=== PATIENT | female | born 1980 ===

== ENCOUNTER 2017-06-07 17:01 | Emergency (ER) | payer OTHER ==
[2017-06-07 17:04] VITALS: BP 132/82; PULSE 81; RESP 16; TEMP 97.9; O2SAT 100
[2017-06-07 17:05] VITALS: BMI 22.6
[2017-06-07] MEDS ORDERED: Ammonia 2% Inhalant ONE (17:32)
--- NOTE | 2017-06-07 18:05 | ED PDOC ---
HPI: Psych/Substance Abuse Time Seen by Provider: 06/07/17 17:14 Chief Complaint (Nursing): Psychiatric Evaluation Chief Complaint (Provider): Psychiatric Evaluation History Per: Patient History/Exam Limitations: clinical condition Current Symptoms Are (Timing): Still Present Additional History Per: Boyfriend Additional Complaint(s): Patient is a 37 y/o female who was brought to the ED by her catalyst manufacturing operator after she became unresponsive following a verbal argument in the car. She was upset and became unresponsive to verbal stimuli. In the ED she was noted to be crying and hyperventilating. Scribing Machine Operator states that he was breaking up with her, and that she is currently going through a divorce. PMD: None Provided Past Medical History Reviewed: Historical Data, Nursing Documentation, Vital Signs Vital Signs: Last Vital Signs Temp 97.9 F 06/07/17 17:03 Pulse 81 06/07/17 17:03 Resp 16 06/07/17 17:03 BP 132/82 06/07/17 17:03 Pulse Ox 100 06/07/17 17:03 - Medical History PMH: Anemia, Migraine - Surgical History Surgical History: Appendectomy, Cholecystectomy - Family History Family History: States: Unknown Family Hx - Immunization History Hx Tetanus Toxoid Vaccination: No Hx Influenza Vaccination: No Hx Pneumococcal Vaccination: No - Home Medications Home Medications: Ambulatory Orders Medication Instructions Recorded Acetaminophen/Butalbital/Caf 1 tab PO TID PRN #20 tab 04/06/17 [Fioricet] Ibuprofen [Motrin Tab] 600 mg PO Q8 #30 tab 04/06/17 Metoclopramide [Reglan] 1 tab PO TID PRN #25 tab 04/06/17 - Allergies Allergies/Adverse Reactions: Allergies Allergy/AdvReac Type Severity Reaction Status Date / Time No Known Allergies Allergy Unverified 04/06/17 00:02 Review of Systems Review Of Systems: ROS cannot be obtained secondary to pt's inabilty to answer questions. Physical Exam - Reviewed Nursing Documentation Reviewed: Yes Vital Signs Reviewed: Yes - Physical Exam Appears: Positive for: Non-toxic, No Acute Distress Head Exam: Positive for: ATRAUMATIC, NORMAL INSPECTION, NORMOCEPHALIC Skin: Positive for: Normal Color, Warm, Dry Eye Exam: Positive for: Normal appearance, EOMI, PERRL. Negative for: Nystagmus ENT: Positive for: Normal ENT Inspection Neck: Positive for: Normal, Painless ROM, Supple Cardiovascular/Chest: Positive for: Regular Rate, Rhythm. Negative for: Edema, Murmur Respiratory: Positive for: Normal Breath Sounds. Negative for: Wheezing, Respiratory Distress Gastrointestinal/Abdominal: Positive for: Normal Exam, Bowel Sounds, Soft. Negative for: Tenderness Back: Positive for: Normal Inspection Extremity: Positive for: Normal ROM. Negative for: Pedal Edema, Deformity Neurologic/Psych: Positive for: Alert (arousable to verbal stimuli. not awake or alert), Oriented, Mood/Affect (appears anxious) - Laboratory Results Result Diagrams: 06/07/17 18:00 06/07/17 18:00 - ECG O2 Sat by Pulse Oximetry: 100 (RA) Pulse Ox Interpretation: Normal Medical Decision Making Medical Decision Making: Time: 17:37 Initial Impression: adjustment disorder, panic attack Initial Plan: --EKG --Alcohol Serum --BMP --Urine Drug Screen --HCG --Urine --CBC Patient is cleared by Dr Ramos per crisis. Patient is upset but back to normal mental status at this time. Scribe Attestation: Documented by Michael Simpson, acting as a scribe for Dr. Poppy Galdamez MD. Provider Scribe Attestation: All medical record entries made by the Scribe were at my direction and personally dictated by me. I have reviewed the chart and agree that the record accurately reflects my personal performance of the history, physical exam, medical decision making, and the department course for this patient. I have also personally directed, reviewed, and agree with the discharge instructions and disposition. Disposition - Clinical Impression Clinical Impression: Adjustment disorder - Patient ED Disposition Is Patient to be Admitted: No Doctor Will See Patient In The: Office Counseled Patient/Family Regarding: Studies Performed, Diagnosis, Need For Followup - Disposition Referrals: [facility] [Outside] Disposition: Routine/Home Disposition Time: 19:00 Condition: GOOD Additional Instructions: Follow up with your PCP in 2-3 days. Instructions: Stress (ED), Mood Disorders (ED)
[2017-06-07 18:12] LABS: BASO # 0.1 K/uL (0.0-0.2); BASO % 0.9 % (0.0-2.0); EOS # 0.1 K/uL (0.0-0.7); EOS % 0.9 % (0.0-4.0); HEMATOCRIT 29.3 % (34.0-47.0); LYMPH # 1.3 K/uL (1.0-4.3); MEAN CELL VOLUME 71.5 fl (81.0-99.0); MEAN CORPUSCULAR HEMOGLOBIN 22.1 pg (27.0-31.0); MEAN CORPUSCULAR HGB CONC 30.8 g/dL (33.0-37.0); MEAN PLATELET VOLUME 8.4 fl (7.2-11.7); MONO # 0.4 K/uL (0.0-0.8); MONO % 6.6 % (0.0-10.0); NEUT # 4.3 K/uL (1.8-7.0); NEUT % 70.6 % (50.0-75.0); RED CELL DISTRIBUTION WIDTH 16.9 % (11.5-14.5)
[2017-06-07 18:17] LABS: ALCOHOL SERUM < 10 mg/dl (0-10); BLOOD UREA NITROGEN 6 mg/dl (7-17); CALCIUM 9.4 mg/dL (8.4-10.2); CARBON DIOXIDE 25 mmol/L (22-30); CHLORIDE 107 mmol/L (98-107); GFR AFRICAN-AMERICAN > 60; GLUCOSE,RANDOM 93 mg/dL (65-105); POTASSIUM 3.8 MMOL/L (3.6-5.0); SODIUM 141 mmol/l (132-148)
== END 2017-06-07 20:58 | disposition home or self-care (01) ==
LOC: H.ER 17:01
DX: F43.20 Adjustment disorder, unspecified (principal); F41.0 Panic disorder [episodic paroxysmal anxiety]

== ENCOUNTER 2018-05-26 16:50 | Observation (INO) | payer MEDICAID, OTHER ==
[2018-05-26 16:51] VITALS: BMI 25.1
[2018-05-26 16:55] VITALS: TEMP 98
--- NOTE | 2018-05-26 18:53 | ED PDOC ---
HPI: Psych/Substance Abuse Time Seen by Provider: 05/26/18 17:00 Chief Complaint (Nursing): Psychiatric Evaluation Chief Complaint (Provider): Benadryl overdose History Per: Patient, Parachute Accessories Attacher (Virginia Vasques #[id number]) History/Exam Limitations: no limitations Associated Symptoms: denies: Suicidal Thoughts, Suicidal Plan Additional Complaint(s): 38yo female, no past medical history, brought to ER by EMS for evaluation s/p possible suicide attempt. Per EMS, patient's family called them after patient noted to take pills at home. Upon questioning, patient admits to taking 4 Benadryl pills and states she is feeling very anxious. She denies any suicidal or homicidal ideation; patient also denies any medical complaints. PMD: None Past Medical History Reviewed: Historical Data, Nursing Documentation, Vital Signs Vital Signs: Last Vital Signs Temp 98.0 F 05/26/18 16:52 Pulse 116 H 05/26/18 16:52 Resp 16 05/26/18 16:52 BP 141/87 05/26/18 16:52 Pulse Ox 99 05/26/18 16:52 - Medical History PMH: Anemia, Depression, Migraine Denies: Diabetes, Hepatitis, HIV, HTN, Chronic Kidney Disease, Seizures, Sexually Transmitted Disease - Surgical History Surgical History: Appendectomy, Cholecystectomy, - Family History Family History: States: Unknown Family Hx - Living Arrangements Living Arrangements: With Family - Social History Current smoker - smoking cessation education provided: No Alcohol: None Drugs: Denies - Immunization History Hx Tetanus Toxoid Vaccination: No Hx Influenza Vaccination: No Hx Pneumococcal Vaccination: No - Home Medications Home Medications: Ambulatory Orders Medication Instructions Recorded Ondansetron ODT [Zofran ODT] 4 mg PO Q8 #12 odt 01/20/18 Ciprofloxacin HCl [Cipro] 500 mg PO BID 10 Days tablet 01/25/18 Ondansetron ODT [Zofran ODT] 4 mg PO Q6H 10 Days odt 01/25/18 Sulfamethoxazole/Trimethoprim 1 tab PO BID #20 tab 02/22/18 [Bactrim DS 800 mg-160 mg] - Allergies Allergies/Adverse Reactions: Allergies Allergy/AdvReac Type Severity Reaction Status Date / Time No Known Allergies Allergy Verified 05/26/18 16:52 Review of Systems ROS Statement: Except As Marked, All Systems Reviewed And Found Negative Psych: Positive for: Other (Took 4x benadryl tablets). Negative for: Suicidal ideation Physical Exam - Reviewed Nursing Documentation Reviewed: Yes Vital Signs Reviewed: Yes - Physical Exam Appears: Positive for: No Acute Distress Head Exam: Positive for: ATRAUMATIC, NORMAL INSPECTION, NORMOCEPHALIC Skin: Positive for: Normal Color Eye Exam: Positive for: Normal appearance, EOMI, PERRL Neck: Positive for: Normal, Supple Cardiovascular/Chest: Positive for: Tachycardia Respiratory: Positive for: Normal Breath Sounds Gastrointestinal/Abdominal: Positive for: Normal Exam, Soft Back: Positive for: Normal Inspection Extremity: Positive for: Normal ROM, Other (superficial cuts on wrists) Neurologic/Psych: Positive for: Oriented, Other (sleepy but arousable). Negative for: Motor/Sensory Deficits - Laboratory Results Result Diagrams: 05/26/18 19:15 05/26/18 19:15 - ECG ECG: Positive for: Interpreted By Me, Viewed By Me ECG Rhythm: Positive for: Sinus Rhythm Rate: 97 O2 Sat by Pulse Oximetry: 99 (RA) Pulse Ox Interpretation: Normal Medical Decision Making Medical Decision Making: Impression: Patient reported to have taken 4x benadryl (25 mg), suicide attempt Plan: * EKG * Labs * Urinalysis * Poison control consult 21:13 Patient seen and evaluated by crisis team. Patient with persistent drowsiness, patient to be observed in the ER 22:21 pt more alert and awake. ambulaating around the room. coherent, oriented X3. pt no longer somnolent. vitals stable pt has been observed in the ER. Patient now requesting to go home; patient to be re-evaluated by crisis team. 22:45 Per personal care worker, patient needs to be screened by [facility] [place]. Patient currently pending [facility] evaluation. 22:55 Patient is medically cleared for [facility] screening Scribe Attestation: Documented by Agata Villasenor, acting as a scribe for Dudley Barnes MD. Provider Scribe Attestation: All medical record entries made by the Scribe were at my direction and personally dictated by me. I have reviewed the chart and agree that the record accurately reflects my personal performance of the history, physical exam, medical decision making, and the department course for this patient. I have also personally directed, reviewed, and agree with the discharge instructions and disposition. Disposition - Clinical Impression Clinical Impression: Depression - Patient ED Disposition Is Patient to be Admitted: Transfer of Care - Disposition Disposition: Transfer of Care Disposition Time: 23:53 Condition: STABLE Patient Signed Over To: Juan Luis Jc
[2018-05-26 19:27] LABS: SQUAMOUS EPITHIAL 1 /hpf (0-5); URINE BILIRUBIN NEGATIVE (NEGATIVE); URINE BLOOD NEGATIVE (NEGATIVE); URINE CLARITY CLEAR (Clear); URINE COLOR COLORLESS (YELLOW); URINE GLUCOSE (UA) NEG (Normal); URINE LEUKOCYTE ESTERASE NEG Leu/uL (Negative); URINE PROTEIN NEGATIVE (NEGATIVE); URINE UROBILINOGEN 0.2-1.0 mg/dL (0.2-1.0)
[2018-05-26 19:34] LABS: BASO # 0.1 K/uL (0.0-0.2); BASO % 1.3 % (0.0-2.0); EOS % 0.4 % (0.0-4.0); HEMOGLOBIN 10.4 g/dL (12.0-16.0); LYMPH # 1.4 K/uL (1.0-4.3); LYMPH % 27.6 % (20.0-40.0); MEAN CELL VOLUME 79.3 fl (81.0-99.0); MEAN CORPUSCULAR HEMOGLOBIN 25.9 pg (27.0-31.0); MEAN CORPUSCULAR HGB CONC 32.7 g/dL (33.0-37.0); MONO # 0.3 K/uL (0.0-0.8); MONO % 6.3 % (0.0-10.0); NEUT # 3.2 K/uL (1.8-7.0); NEUT % 64.4 % (50.0-75.0); RED CELL DISTRIBUTION WIDTH 15.4 % (11.5-14.5)
[2018-05-26 19:46] LABS: ACETAMINOPHEN < 10.0 ug/ml (10.0-30.0); SALICYLATE < 1.0 mg/dl
[2018-05-26 19:48] LABS: BILIRUBIN,DIRECT 0.4 mg/ml (0.0-0.4); BLOOD UREA NITROGEN 7 mg/dl (7-17); CALCIUM 9.3 mg/dL (8.4-10.2); GFR NON-AFRICAN AMERICAN > 60
[2018-05-26 19:55] LABS: ALB/GLOB RATIO 1.1 (1.0-2.1); ALBUMIN 4.2 g/dL (3.5-5.0); ALT/SGPT 25 U/L (9-52); AST/SGOT 51 U/L (14-36); BARBITURATES, UR NEGATIVE (NEGATIVE); BENZODIAZEPINES, UR NEGATIVE (NEGATIVE); OPIATES, UR NEGATIVE (NEGATIVE); PHENCYCLIDINE, UR NEGATIVE (NEGATIVE)
--- NOTE | 2018-05-27 00:09 | ED PDOC ---
- Laboratory Results Result Diagrams: 05/26/18 19:15 05/26/18 19:15 - ECG O2 Sat by Pulse Oximetry: 99 (RA) Medical Decision Making Medical Decision Makin:00 At this time patient was endorsed to provider by Dr. Barnes [place] [facility] [place]. 06:00 -Patient was evaluated [place] [facility] [place], he does not meet criteria for involuntary admission and is medically stable for discharge home. Diagnosis of depressive disorder. Scribe Attestation: Documented by Krishna Kumar, acting as a scribe for Juan Luis Jc MD. Provider Scribe Attestation: All medical record entries made by the Scribe were at my direction and personally dictated by me. I have reviewed the chart and agree that the record accurately reflects my personal performance of the history, physical exam, medical decision making, and the department course for this patient. I have also personally directed, reviewed, and agree with the discharge instructions and disposition. Disposition - Clinical Impression Clinical Impression: Depression - Disposition Disposition: Routine/Home Disposition Time: 06:00 Condition: STABLE
[2018-05-27 06:00] VITALS: BP 95/57; PULSE 82; RESP 14
[2018-05-27 06:01] VITALS: O2SAT 99
--- NOTE | 2018-05-27 08:40 | RAD ---
Date of service: 05/26/2018 HISTORY: psych COMPARISON: No prior. FINDINGS: LUNGS: No active pulmonary disease. PLEURA: No significant pleural effusion identified, no pneumothorax apparent. CARDIOVASCULAR: Normal. OSSEOUS STRUCTURES: No significant abnormalities. VISUALIZED UPPER ABDOMEN: Surgical clips are identified in the right upper quadrant abdomen. OTHER FINDINGS: None. IMPRESSION: No acute cardiopulmonary disease appreciated.
--- NOTE | 2018-05-27 09:54 | CARD ---
APPROVED REPORT Date of service: 05/26/2018 EKG Measurement Heart [id number] <Conclusion> Normal sinus rhythm Normal ECG
== END 2018-05-27 07:10 | disposition home or self-care (01) ==
LOC: H.ER 16:50 → H.ERHOLD 22:03
PROVIDERS: ADMIT Internal Medicine; ATTEND Internal Medicine
DX: T45.0X1A Poisoning by antiallergic and antiemetic drugs, accidental (unintentional), initial encounter (principal); F32.9 Major depressive disorder, single episode, unspecified
CPT/HCPCS: 71045; 80048; 80076; 80320; 80324; 80329; 80345; 80346; 80349; 80353; 80358; 80361; 81003; 81025; 83992; 85025; 93005; 99285; G0378